=== PATIENT | male | born 1990 | race Caucasian/White ===

== ENCOUNTER 2019-12-18 10:50 | Emergency (ER) | payer BC, SELFPAY ==
--- NOTE | ~2019-12-18 | US_ITS ---
EXAMINATION: US scrotum doppler DATE: 12/18/2019 12:50 INDICATION: Right scrotal swelling TECHNIQUE: Testicular sonogram utilizing grayscale and Doppler COMPARISON: None. FINDINGS: The right testis measures 4.4 x 2.9 x 2.3 cm. The left testis measures 3.5 x 2.6 x 2.0 cm. Symmetric normal grayscale appearance to both testes. There is normal vascular flow to both testes. The right e pididymis is normal with normal vascular flow. The left epididymis is normal with normal vascular kelsea w. There is no varicocele or hydrocele. There is asymmetric right-sided scrotal edema with skin thick ening centered around an irregular 4.2 x 2.2 x 2.6 cm anechoic fluid collection with irregular margin s and surrounding hyperemia suspicious for a developing abscess within the region of cellulitis and p hlegmonous change. IMPRESSION: 1. Normal testes and epididymides. 2. 4.2 x 2.2 x 2.6 cm likely developing abscess within a region of cellulitis and phlegmonous change at the right scrotum. Reviewed, dictated and finalized at location A. IMPRESSION: 1. Normal testes and epididymides. 2. 4.2 x 2.2 x 2.6 cm likely developing abscess within a region of cellulitis a nd phlegmonous change at the right scrotum.
[2019-12-18 10:59] VITALS: BP 133/90; PULSE 105; RESP 16; TEMP 36.8; O2SAT 100
--- NOTE | 2019-12-18 12:46 | ED.MALEGU ---
HPI - Male Genitourinary General Chief complaint: Urogenital-Male Stated complaint: urogenital issue male Time Seen by Provider: 12/18/19 11:32 Source: patient Mode of arrival: ambulatory Limitations: no limitations History of Present Illness HPI Narrative: This patient is a 29 year old male who presents for evaluation of lump on his right scrotum. He noticed a tender lump under is right scrotum on . He does not think it has increased in size. He denies nausea, vomiting, fever or chills. He denies history of boils or abscess. Denies history of skin infection. Related Data Allergies Allergy/AdvReac Type Severity Reaction Status Date / Time No Known Allergies Allergy Verified 12/18/19 11:02 Review of Systems Review of Systems: All systems reviewed & are unremarkable except as noted in HPI and below Constitutional: Constitutional: Denies chills and Denies fever(s) Respiratory: Respiratory: Denies chest congestion, Denies cough and Denies hemoptysis Gastrointestinal: Gastrointestinal: Denies abdominal pain and Denies change in bowel habits [facility] Past Medical History Medical History (Updated 12/18/19 @ 14:59 by Nikki Granado MD) Patient denies medical problems Family History Family History (Updated 11/01/15 @ 23:21 by DOCTOR UNKNOWN) Mother Patient's mother is in good health Father Patient's father is in good health Social History Social History Alcohol intake: current Gender identity (if verbalized by the patient): Male Exam Const: General: cooperative, healthy appearing, well developed, alert, awake and Physically active HENMT: Head: atraumatic Face and sinus: face symmetric Resp: Effort & Inspection: normal respiratory effort GI: Inspection: normal to inspection and no edema GI Palp: Yes Soft to palpation, No Tenderness to palpation present (GI) and No Guarding due to palpation present (GI) : Penis: Yes circumcised Scrotum: erythematous (posterior scrotum) on the right Back/Spine/Pelvis: Back: no CVA tenderness Course Consultations Consultation #1: I discussed with Dr. Chavez of urology . I discussed I performed an I and D to scrotal abscess and he agrees patient can follow up in clinic. Date: 12/18/19 Time: 15:00 Vital Signs Vital signs: Vital Signs Temperature 98.3 F 12/18/19 10:59 Pulse Rate 105 H 12/18/19 10:59 Respiratory Rate 16 12/18/19 10:59 Blood Pressure 133/90 12/18/19 10:59 Pulse Oximetry 100 12/18/19 10:59 Temperature 98.3 F 12/18/19 10:59 Pulse Rate 78 12/18/19 15:10 Respiratory Rate 16 12/18/19 15:10 Blood Pressure 119/58 L 12/18/19 15:10 Pulse Oximetry 100 12/18/19 15:10 Procedures Abscess I/D right scrotum: Date of Incision: 12/18/19 Time of Incision: 14:55 Local Anesthetic: lidocaine 1% and with epi Amount of anesthesia used (mL): 5 Amount of fluid expressed (mL): 4 Irrigation: Yes Packing used?: iodoform I&D Results: Pus and Blood MDM - Male Genitourinary Imaging Data Radiologist's impression: ITS Impressions Scrotum Ultrasound 12/18/19 13:00 IMPRESSION: 1. Normal testes and epididymides. 2. 4.2 x 2.2 x 2.6 cm likely developing abscess within a region of cellulitis and phlegmonous change at the right scrotum. Discharge Plan Discharge Clinical Impression: Abscess of scrotum Patient Disposition: Home, Self-Care Condition: Stable Instructions: Antibiotic Form, Abscess (ED), Abscess Follow-up (ED), Scrotal Pain (ED) Additional Instructions: I spoke with urology and they will set up an appointment to see you with in a week. If you do not hear from them by Wednesday call. Take antibiotics until completion. Apply warm compress to assist in drainage. Prescriptions: New hydrocodone-acetaminophen [[place]] 5-325 mg tablet 1 tablet PO Q6H PRN (Reason: pain) Qty: 10 RF: 0 sulfamethoxazole-trimethoprim [Ba
[2019-12-18 13:47] VITALS: BP 118/75; PULSE 92; RESP 17; O2SAT 100
[2019-12-18] MEDS: CEPHALEXIN 500 MG CAPSULE PO (14:05)
--- NOTE | 2019-12-18 14:07 | PC.NURSE ---
supplies requested by victorino leahy at bedside to franc levin.
[2019-12-18 15:10] VITALS: BP 119/58; PULSE 78; RESP 16; O2SAT 100
== END 2019-12-18 15:13 | disposition home or self-care (01) ==
PROVIDERS: Emergency Provider General Practice; PCP Internal Medicine
DX: N49.2 Inflammatory disorders of scrotum (principal)
CPT/HCPCS: 54700; 76870; 93976; 99284; A9270